=== PATIENT | female | born 1950 | race Caucasian/White ===

== ENCOUNTER → 2022-03-28 | Outpatient (CLI) | payer MEDICARE ==
[~2022-03-28] MED LIST: ALBUTEROL0.63 MG/3 NEB; ASPIRIN81 MG PO; BREO ELLIPTA 11 EACH INH; CENTRUM ADULTS1 EACH PO; CLOPIDOGREL75 MG PO; CRESTOR10 MG PO; FEROSUL325 MG PO; FUROSEMIDE40 MG PO; HYDRALAZINE HCL10 MG PO; IPRAT-ALBUT 0.5-3 ML; IRBESARTAN150 MG PO; ISOSORBIDE MONO30 MG PO; LABETALOL HCL100 MG PO; OMEPRAZOLE40 MG PO; POTASSIUM99 M1 PO; RANEXA500 MG PO; SPIRONOLACTONE25 MG PO; TUDORZA PRESS400 MCG; VERAPAMIL ER240 M1
== END ==
LOC: RAD 11:44
PROVIDERS: ATTEND Internal Medicine Gastroenterology
DX: K59.00 Constipation, unspecified (principal)
CPT/HCPCS: 74018

== ENCOUNTER → 2022-04-03 | Day surgery (SDC) | payer MEDICARE ==
[2022-04-01 10:22] LABS: BASOPHILS % 0.8 % (0.0-1.0); EOSINOPHILS # (AUTO) 0.1 (0.0-0.4); EOSINOPHILS % 1.2 % (0.0-6.0); HEMATOCRIT 30.8 % (34.2-44.1); HEMOGLOBIN 9.9 g/dL (12.0-16.0); LYMPHOCYTES # (AUTO) 1.7 (1.0-3.2); LYMPHOCYTES % 32.5 % (18.0-39.1); MEAN CORPUSCULAR HEMOGLOBIN 32.4 pg (28-32); MEAN CORPUSCULAR HGB CONC 32.1 g/dL (31-35); MEAN CORPUSCULAR VOLUME 100.7 fL (81-99); MONOCYTES # (AUTO) 0.6 (0.2-0.8); MONOCYTES % 10.9 % (4.4-11.3); NEUTROPHILS # (AUTO) 2.7 (2.1-6.9); NEUTROPHILS % 53.2 % (38.7-80.0); PLATELET COUNT 192 x10e3/uL (140-360); RED BLOOD COUNT 3.06 x10e6/uL (3.6-5.1); RED CELL DISTRIBUTION WIDTH 13.6 % (11.7-14.4)
[~2022-04-03] MED LIST changes: +EPHEDRINE SULFATE INJ 50 MG/ML VIAL ONE; +FENTANYL CITRATE/PF 100MCG/2 ML INJ ONE; +HYOSCYAMINE SULFATE 0.5 MG/ML INJ ONE; +LIDOCAINE HCL 2% LOCAL INJ 5 ML SDV VIAL INJ ONE; +MIDAZOLAM HCL 2 MG/2 ML VIAL ONE; +PROPOFOL IV EMULSION 10 MG/ML 20 ML VIAL ONE
[2022-04-03 09:24] VITALS: BP 138/58
== END | disposition home or self-care (01) ==
LOC: OR 06:16
PROVIDERS: ATTEND Internal Medicine Gastroenterology
DX: K21.9 Gastro-esophageal reflux disease without esophagitis (principal); D12.3 Benign neoplasm of transverse colon; K29.60 Other gastritis without bleeding; K29.80 Duodenitis without bleeding; K59.09 Other constipation; K20.90 Esophagitis, unspecified without bleeding; K22.89 Other specified disease of esophagus; K44.9 Diaphragmatic hernia without obstruction or gangrene; K31.89 Other diseases of stomach and duodenum; K56.609 Unspecified intestinal obstruction, unspecified as to partial versus complete obstruction; K57.30 Diverticulosis of large intestine without perforation or abscess without bleeding; K58.9 Irritable bowel syndrome, unspecified; K64.8 Other hemorrhoids; D64.9 Anemia, unspecified; Z71.3 Dietary counseling and surveillance; J44.9 Chronic obstructive pulmonary disease, unspecified; E78.00 Pure hypercholesterolemia, unspecified; I12.9 Hypertensive chronic kidney disease with stage 1 through stage 4 chronic kidney disease, or unspecified chronic kidney disease; N18.9 Chronic kidney disease, unspecified; I83.90 Asymptomatic varicose veins of unspecified lower extremity; F41.9 Anxiety disorder, unspecified; Z88.6 Allergy status to analgesic agent; Z88.1 Allergy status to other antibiotic agents; Z88.0 Allergy status to penicillin; Z88.8 Allergy status to other drugs, medicaments and biological substances; Z01.810 Encounter for preprocedural cardiovascular examination; Z01.812 Encounter for preprocedural laboratory examination; Z20.822 Contact with and (suspected) exposure to COVID-19; Z99.81 Dependence on supplemental oxygen; Z79.02 Long term (current) use of antithrombotics/antiplatelets; Z79.82 Long term (current) use of aspirin; Z79.899 Other long term (current) drug therapy; Z87.891 Personal history of nicotine dependence
CPT/HCPCS: 0223U; 36415; 43239; 45378; 45385; 85025; 93005; J1980; J2001; J2250; J3010

== ENCOUNTER 2022-05-15 08:27 | Inpatient (IN) | payer MEDICARE ==
[~2022-05-15] VITALS: Ht 154.9 cm; Wt 67.1 kg
[~2022-05-15 08:27] MED LIST changes: -EPHEDRINE SULFATE INJ 50 MG/ML VIAL ONE; -FENTANYL CITRATE/PF 100MCG/2 ML INJ ONE; -HYOSCYAMINE SULFATE 0.5 MG/ML INJ ONE; -LIDOCAINE HCL 2% LOCAL INJ 5 ML SDV VIAL INJ ONE; -MIDAZOLAM HCL 2 MG/2 ML VIAL ONE; -PROPOFOL IV EMULSION 10 MG/ML 20 ML VIAL ONE; -VERAPAMIL ER240 M1; +VERAPAMIL ER240 M1 PO
[2022-05-15 09:47] LABS: BASOPHILS # (AUTO) 0.1 (0.0-0.1); BASOPHILS % 0.3 % (0.0-1.0); EOSINOPHILS % 0.3 % (0.0-6.0); HEMATOCRIT 27.4 % (34.2-44.1); HEMOGLOBIN 8.7 g/dL (12.0-16.0); LYMPHOCYTES % 12.8 % (18.0-39.1); MEAN CORPUSCULAR HEMOGLOBIN 31.5 pg (28-32); MEAN CORPUSCULAR HGB CONC 31.8 g/dL (31-35); MEAN CORPUSCULAR VOLUME 99.3 fL (81-99); MONOCYTES # (AUTO) 2.1 (0.2-0.8); MONOCYTES % 13.1 % (4.4-11.3); NEUTROPHILS # (AUTO) 11.5 (2.1-6.9); NEUTROPHILS % 72.7 % (38.7-80.0); PLATELET COUNT 264 x10e3/uL (140-360); RED BLOOD COUNT 2.76 x10e6/uL (3.6-5.1); RED CELL DISTRIBUTION WIDTH 13.7 % (11.7-14.4)
[2022-05-15 10:06] LABS: ALANINE AMINOTRANSFERASE 18 IU/L (0-55); ALBUMIN 3.1 g/dL (3.5-5.0); ALKALINE PHOSPHATASE 74 IU/L (40-150); ANION GAP 17.6 mmol/L (8-16); BLOOD UREA NITROGEN 42 mg/dL (7-26); BUN/CREATININE RATIO 19 (6-25); CALCIUM 9.1 mg/dL (8.4-10.2); CARBON DIOXIDE 21 mmol/L (22-29); CHLORIDE 104 mmol/L (98-107); CREATINE KINASE 135 IU/L (29-168); CREATININE, SERUM 2.27 mg/dL (0.57-1.11); GLUCOSE 102 mg/dL (74-118); MAGNESIUM 1.3 MG/DL (1.3-2.1); POTASSIUM 4.6 mmol/L (3.5-5.1); SODIUM 138 mmol/L (136-145)
[2022-05-15 10:23] LABS: INR 1.1; PARTIAL THROMBOPLASTIN TIME 34.9 seconds (23.8-35.5); PROTHROMBIN TIME 15.2 seconds (11.9-14.5)
[2022-05-15] MEDS ORDERED: POTASSIUM CHLO20 ME1 PO (10:37)
[2022-05-15] MEDS ORDERED: ASPIRIN 81 MG CHEW TAB PO ONE (11:15)
[2022-05-15] MEDS ORDERED: HYDRALAZINE HCL 10 MG TAB PO SCH (11:30)
[2022-05-15] MEDS: ALBUTEROL/IPRATROPIUM 3 ML NEB HHN SCH ×2 (11:50→19:45)
[2022-05-15 12:02] LABS: FREE THYROXINE INDEX 1.8672 (1.4-3.8); THYROID STIMULATING HORMONE 2.71 uIU/mL (0.350-4.940)
[2022-05-15] MEDS: METHYLPREDNISOLONE SOD SUCC 40 MG/ML VIAL 1ML IV SCH ×2 (13:38→22:36)
[2022-05-15 14:17] LABS: CREATINE KINASE 133 IU/L (29-168)
[2022-05-15] MEDS: RANOLAZINE 500 MG TABSR PO SCH (17:00)
[2022-05-15 20:00] VITALS: BP 160/75
[2022-05-15 20:20] VITALS: BP 160/75
[2022-05-15 21:00] VITALS: BP 160/75
[2022-05-15] MEDS ORDERED: BREO ELLIPTA 11 EACH INH (22:45)
[2022-05-15] MEDS ORDERED: OMEPRAZOLE40 MG PO (22:49)
[2022-05-15] MEDS ORDERED: FUROSEMIDE20 MG PO (23:08)
[2022-05-15] MEDS ORDERED: HYDRALAZINE HCL 25 MG TAB PO PRN (23:15)
[2022-05-15 23:33] VITALS: BP 160/75
[2022-05-16] VITALS: BP 180/65
[2022-05-16] MEDS: ALBUTEROL/IPRATROPIUM 3 ML NEB HHN SCH ×4 (01:15→19:00)
[2022-05-16] MEDS: HYDRALAZINE HCL 25 MG TAB PO PRN ×2 (02:03→13:35)
[2022-05-16 04:00] VITALS: BP 192/72
[2022-05-16 05:41] LABS: BASOPHILS % 0.2 % (0.0-1.0); HEMATOCRIT 26.4 % (34.2-44.1); HEMOGLOBIN 8.6 g/dL (12.0-16.0); LYMPHOCYTES # (AUTO) 0.6 (1.0-3.2); LYMPHOCYTES % 7.2 % (18.0-39.1); MEAN CORPUSCULAR HEMOGLOBIN 30.5 pg (28-32); MEAN CORPUSCULAR HGB CONC 32.6 g/dL (31-35); MEAN CORPUSCULAR VOLUME 93.6 fL (81-99); MONOCYTES # (AUTO) 0.4 (0.2-0.8); MONOCYTES % 5.1 % (4.4-11.3); NEUTROPHILS # (AUTO) 7.1 (2.1-6.9); NEUTROPHILS % 85.7 % (38.7-80.0); PLATELET COUNT 260 x10e3/uL (140-360); RED BLOOD COUNT 2.82 x10e6/uL (3.6-5.1); RED CELL DISTRIBUTION WIDTH 13.3 % (11.7-14.4)
[2022-05-16] MEDS: METHYLPREDNISOLONE SOD SUCC 40 MG/ML VIAL 1ML IV SCH ×3 (05:48→22:02)
[2022-05-16 06:07] LABS: ALBUMIN 3.2 g/dL (3.5-5.0); ALBUMIN/GLOBULIN RATIO 0.8 (0.8-2.0); ANION GAP 18.5 mmol/L (8-16); CALCIUM 9.8 mg/dL (8.4-10.2); CHOL/HDL RATIO 3.3 (3.0-3.6); CREATININE, SERUM 1.92 mg/dL (0.57-1.11); POTASSIUM 4.5 mmol/L (3.5-5.1)
[2022-05-16 06:52] LABS: CREATINE KINASE 172 IU/L (29-168)
[2022-05-16 09:00] VITALS: BP 178/56
[2022-05-16] MEDS ORDERED: VERAPAMIL HCL PO SCH (09:00)
[2022-05-16] MEDS: BREO ELLIPTA INH SCH (09:00)
[2022-05-16] MEDS ORDERED: LABETALOL HCL 100 MG TAB PO SCH (09:00)
[2022-05-16] MEDS ORDERED: ASPIRIN 81 MG CHEW TAB PO SCH (09:00)
[2022-05-16] MEDS: MULTIVITAMINS/MINERALS TAB PO SCH (09:54)
[2022-05-16] MEDS: ASPIRIN 81 MG ENTERIC COATED PO SCH (09:55)
[2022-05-16] MEDS: RANOLAZINE 500 MG TABSR PO SCH ×2 (09:57→16:46)
[2022-05-16] MEDS: ISOSORBIDE MONONITRATE 30 MG TAB CR PO SCH (09:58)
[2022-05-16] MEDS: IRBESARTAN 150 MG TAB PO SCH (09:59)
[2022-05-16] MEDS: PANTOPRAZOLE SOD 40 MG TABEC PO SCH (09:59)
[2022-05-16] MEDS: CLOPIDOGREL BISULFATE 75 MG TAB PO SCH (09:59)
[2022-05-16 13:21] VITALS: BP 175/69
[2022-05-16] MEDS: NYSTATIN SUSPENSION 5 ML UDC PO SCH ×2 (13:36→16:46)
[2022-05-16 14:29] LABS: CREATINE KINASE 205 IU/L (29-168)
[2022-05-16 16:15] VITALS: BP 173/50
[2022-05-16] MEDS: HYDRALAZINE HCL 25 MG TAB PO SCH ×2 (18:48→22:07)
[2022-05-16 20:00] VITALS: BP 201/62
[2022-05-16] MEDS: SIMVASTATIN 20 MG TAB PO SCH (22:02)
[2022-05-17] VITALS (7 sets, daily range): BP systolic 141–171; BP diastolic 40–67
[2022-05-17] MEDS: ALBUTEROL/IPRATROPIUM 3 ML NEB HHN SCH ×4 (00:44→18:45)
[2022-05-17] MEDS ORDERED: HYDRALAZINE HCL 20 MG/ML VIAL ONE (01:29)
[2022-05-17 06:09] LABS: BASOPHILS % 0.3 % (0.0-1.0); HEMATOCRIT 25.4 % (34.2-44.1); HEMOGLOBIN 8.3 g/dL (12.0-16.0); LYMPHOCYTES # (AUTO) 0.7 (1.0-3.2); LYMPHOCYTES % 5.6 % (18.0-39.1); MEAN CORPUSCULAR HGB CONC 32.7 g/dL (31-35); MEAN CORPUSCULAR VOLUME 94.8 fL (81-99); MONOCYTES # (AUTO) 0.6 (0.2-0.8); MONOCYTES % 4.5 % (4.4-11.3); NEUTROPHILS # (AUTO) 10.9 (2.1-6.9); PLATELET COUNT 310 x10e3/uL (140-360); RED BLOOD COUNT 2.68 x10e6/uL (3.6-5.1); RED CELL DISTRIBUTION WIDTH 13.4 % (11.7-14.4)
[2022-05-17 06:44] LABS: ANION GAP 18.6 mmol/L (8-16); CALCIUM 9.8 mg/dL (8.4-10.2); CREATININE, SERUM 1.37 mg/dL (0.57-1.11); POTASSIUM 4.6 mmol/L (3.5-5.1)
[2022-05-17] MEDS: METHYLPREDNISOLONE SOD SUCC 40 MG/ML VIAL 1ML IV SCH ×3 (07:02→22:29)
[2022-05-17] MEDS: HYDRALAZINE HCL 25 MG TAB PO SCH ×3 (07:02→22:29)
[2022-05-17] MEDS: NYSTATIN SUSPENSION 5 ML UDC PO SCH ×4 (07:02→17:22)
[2022-05-17] MEDS: BREO ELLIPTA INH SCH (08:35)
[2022-05-17] MEDS: MULTIVITAMINS/MINERALS TAB PO SCH (08:49)
[2022-05-17] MEDS: RANOLAZINE 500 MG TABSR PO SCH ×2 (08:49→17:22)
[2022-05-17] MEDS: AZITHROMYCIN 250 MG TAB PO SCH (08:49)
[2022-05-17] MEDS: CLOPIDOGREL BISULFATE 75 MG TAB PO SCH (08:50)
[2022-05-17] MEDS: IRBESARTAN 150 MG TAB PO SCH (08:50)
[2022-05-17] MEDS: ASPIRIN 81 MG ENTERIC COATED PO SCH (08:50)
[2022-05-17] MEDS: PANTOPRAZOLE SOD 40 MG TABEC PO SCH (08:50)
[2022-05-17] MEDS: ISOSORBIDE MONONITRATE 30 MG TAB CR PO SCH (08:51)
[2022-05-17] MEDS ORDERED: GUAIFENESIN 200 MG/10 ML UDC PO PRN (11:15)
[2022-05-17] MEDS ORDERED: GUAIFENESIN/CODEINE 5 ML LIQD PO PRN (11:15)
[2022-05-17] MEDS: SIMVASTATIN 20 MG TAB PO SCH (22:22)
[2022-05-17] MEDS: HEPARIN SOD (PORCINE) 5,000 UNIT/ML VIAL SC SCH (22:39)
[2022-05-18] VITALS (8 sets, daily range): BP systolic 143–200; BP diastolic 43–69
[2022-05-18] MEDS: ALBUTEROL/IPRATROPIUM 3 ML NEB HHN SCH ×4 (00:35→19:30)
[2022-05-18] MEDS: NYSTATIN SUSPENSION 5 ML UDC PO SCH ×5 (05:31→23:41)
[2022-05-18] MEDS: METHYLPREDNISOLONE SOD SUCC 40 MG/ML VIAL 1ML IV SCH ×3 (05:31→20:58)
[2022-05-18] MEDS: HYDRALAZINE HCL 25 MG TAB PO SCH ×2 (06:44→13:32)
[2022-05-18] MEDS: HYDRALAZINE HCL 20 MG/ML VIAL IV PRN ×2 (08:15→16:07)
[2022-05-18] MEDS: AZITHROMYCIN 250 MG TAB PO SCH (08:18)
[2022-05-18] MEDS: PANTOPRAZOLE SOD 40 MG TABEC PO SCH (08:18)
[2022-05-18] MEDS: MULTIVITAMINS/MINERALS TAB PO SCH (08:19)
[2022-05-18] MEDS: ISOSORBIDE MONONITRATE 30 MG TAB CR PO SCH (08:19)
[2022-05-18] MEDS: CLOPIDOGREL BISULFATE 75 MG TAB PO SCH (08:19)
[2022-05-18] MEDS: RANOLAZINE 500 MG TABSR PO SCH ×2 (08:20→16:16)
[2022-05-18] MEDS: ASPIRIN 81 MG ENTERIC COATED PO SCH (08:20)
[2022-05-18] MEDS: BREO ELLIPTA INH SCH (08:20)
[2022-05-18] MEDS: IRBESARTAN 150 MG TAB PO SCH (08:22)
[2022-05-18] MEDS ORDERED: ACETAMINOPHEN 325 MG TAB ONE (08:58)
[2022-05-18] MEDS: HEPARIN SOD (PORCINE) 5,000 UNIT/ML VIAL SC SCH ×2 (14:39→22:02)
[2022-05-18] MEDS ORDERED: HYDRALAZINE HCL 25 MG TAB PO ONE (16:00)
[2022-05-18] MEDS: SPIRONOLACTONE 25 MG TAB PO SCH (16:16)
[2022-05-18] MEDS: ACETAMINOPHEN 325 MG TAB PO PRN (16:18)
[2022-05-18] MEDS: DOXAZOSIN MESYLATE 2 MG TAB PO SCH (18:46)
[2022-05-18] MEDS: SIMVASTATIN 20 MG TAB PO SCH (20:58)
[2022-05-18] MEDS: HYDRALAZINE HCL 100 MG TABLET PO SCH (20:58)
[2022-05-19] VITALS (8 sets, daily range): BP systolic 138–175; BP diastolic 36–94
[2022-05-19] MEDS: ALBUTEROL/IPRATROPIUM 3 ML NEB HHN SCH ×4 (00:35→18:50)
[2022-05-19] MEDS: METHYLPREDNISOLONE SOD SUCC 40 MG/ML VIAL 1ML IV SCH ×2 (04:37→17:13)
[2022-05-19] MEDS: NYSTATIN SUSPENSION 5 ML UDC PO SCH ×4 (04:38→23:27)
[2022-05-19] MEDS: HYDRALAZINE HCL 100 MG TABLET PO SCH ×3 (04:38→21:53)
[2022-05-19] MEDS: BREO ELLIPTA INH SCH (09:00)
[2022-05-19] MEDS: MULTIVITAMINS/MINERALS TAB PO SCH (09:04)
[2022-05-19] MEDS: RANOLAZINE 500 MG TABSR PO SCH ×2 (09:04→17:13)
[2022-05-19] MEDS: PANTOPRAZOLE SOD 40 MG TABEC PO SCH (09:04)
[2022-05-19] MEDS: CLOPIDOGREL BISULFATE 75 MG TAB PO SCH (09:05)
[2022-05-19] MEDS: SPIRONOLACTONE 25 MG TAB PO SCH (09:06)
[2022-05-19] MEDS: ISOSORBIDE MONONITRATE 30 MG TAB CR PO SCH (09:06)
[2022-05-19] MEDS: AZITHROMYCIN 250 MG TAB PO SCH (09:06)
[2022-05-19] MEDS: ASPIRIN 81 MG ENTERIC COATED PO SCH (09:06)
[2022-05-19] MEDS: IRBESARTAN 150 MG TAB PO SCH (09:07)
[2022-05-19] MEDS: DOXAZOSIN MESYLATE 2 MG TAB PO SCH (09:14)
[2022-05-19] MEDS: HEPARIN SOD (PORCINE) 5,000 UNIT/ML VIAL SC SCH ×2 (09:16→21:45)
[2022-05-19] MEDS: SODIUM BICARBONATE 650 MG TAB PO SCH ×2 (15:52→21:53)
[2022-05-19] MEDS: ACETAMINOPHEN 325 MG TAB PO PRN (18:35)
[2022-05-19] MEDS: ACETYLCYSTEINE 200 MG/ML 4ML VIAL INH SCH (20:31)
[2022-05-19] MEDS: SIMVASTATIN 20 MG TAB PO SCH (21:53)
[2022-05-20] VITALS (7 sets, daily range): BP systolic 131–176; BP diastolic 41–59
[2022-05-20] MEDS: ALBUTEROL/IPRATROPIUM 3 ML NEB HHN SCH ×4 (00:43→19:00)
[2022-05-20] MEDS: NYSTATIN SUSPENSION 5 ML UDC PO SCH ×3 (06:15→17:14)
[2022-05-20] MEDS: HYDRALAZINE HCL 100 MG TABLET PO SCH ×3 (06:15→20:59)
[2022-05-20 06:17] LABS: BASOPHILS # (AUTO) 0.1 (0.0-0.1); BASOPHILS % 0.4 % (0.0-1.0); HEMATOCRIT 23.7 % (34.2-44.1); HEMOGLOBIN 7.6 g/dL (12.0-16.0); LYMPHOCYTES # (AUTO) 1.2 (1.0-3.2); LYMPHOCYTES % 10.5 % (18.0-39.1); MEAN CORPUSCULAR HEMOGLOBIN 30.8 pg (28-32); MEAN CORPUSCULAR HGB CONC 32.1 g/dL (31-35); MONOCYTES # (AUTO) 0.6 (0.2-0.8); MONOCYTES % 5.5 % (4.4-11.3); NEUTROPHILS # (AUTO) 8.6 (2.1-6.9); NEUTROPHILS % 74.8 % (38.7-80.0); PLATELET COUNT 315 x10e3/uL (140-360); RED BLOOD COUNT 2.47 x10e6/uL (3.6-5.1); RED CELL DISTRIBUTION WIDTH 13.6 % (11.7-14.4)
[2022-05-20] MEDS: ACETYLCYSTEINE 200 MG/ML 4ML VIAL INH SCH ×2 (06:41→19:00)
[2022-05-20 06:53] LABS: CALCIUM 9.2 mg/dL (8.4-10.2); CREATININE, SERUM 1.34 mg/dL (0.57-1.11)
[2022-05-20] MEDS: AZITHROMYCIN 250 MG TAB PO SCH (09:16)
[2022-05-20] MEDS: SPIRONOLACTONE 25 MG TAB PO SCH (09:16)
[2022-05-20] MEDS: PANTOPRAZOLE SOD 40 MG TABEC PO SCH (09:17)
[2022-05-20] MEDS: MULTIVITAMINS/MINERALS TAB PO SCH (09:17)
[2022-05-20] MEDS: CLOPIDOGREL BISULFATE 75 MG TAB PO SCH (09:17)
[2022-05-20] MEDS: SODIUM BICARBONATE 650 MG TAB PO SCH ×3 (09:17→20:59)
[2022-05-20] MEDS: IRBESARTAN 150 MG TAB PO SCH (09:17)
[2022-05-20] MEDS: RANOLAZINE 500 MG TABSR PO SCH ×2 (09:18→17:14)
[2022-05-20] MEDS: ISOSORBIDE MONONITRATE 30 MG TAB CR PO SCH (09:19)
[2022-05-20] MEDS: ASPIRIN 81 MG ENTERIC COATED PO SCH (09:19)
[2022-05-20] MEDS: DOXAZOSIN MESYLATE 2 MG TAB PO SCH (09:19)
[2022-05-20] MEDS: HEPARIN SOD (PORCINE) 5,000 UNIT/ML VIAL SC SCH ×2 (09:20→20:59)
[2022-05-20] MEDS: METHYLPREDNISOLONE SOD SUCC 40 MG/ML VIAL 1ML IV SCH ×2 (09:20→17:14)
[2022-05-20] MEDS: BREO ELLIPTA INH SCH (09:24)
[2022-05-20] MEDS: LORATADINE 10 MG TAB PO SCH (16:00)
[2022-05-20] MEDS: SODIUM CHLORIDE/ALOE VERA 14.1GM NASAL GEL SCH (20:15)
[2022-05-20] MEDS: SIMVASTATIN 20 MG TAB PO SCH (20:59)
[2022-05-21] MEDS: NYSTATIN SUSPENSION 5 ML UDC PO SCH ×3 (00:50→13:04)
[2022-05-21] MEDS: ALBUTEROL/IPRATROPIUM 3 ML NEB HHN SCH ×3 (01:00→12:57)
[2022-05-21 04:00] VITALS: BP 162/65
[2022-05-21 05:57] LABS: BASOPHILS # (AUTO) 0.1 (0.0-0.1); BASOPHILS % 0.4 % (0.0-1.0); EOSINOPHILS % 0.1 % (0.0-6.0); HEMATOCRIT 25.4 % (34.2-44.1); HEMOGLOBIN 7.7 g/dL (12.0-16.0); LYMPHOCYTES # (AUTO) 1.3 (1.0-3.2); MEAN CORPUSCULAR HEMOGLOBIN 30.4 pg (28-32); MEAN CORPUSCULAR HGB CONC 30.3 g/dL (31-35); MEAN CORPUSCULAR VOLUME 100.4 fL (81-99); MONOCYTES # (AUTO) 0.6 (0.2-0.8); MONOCYTES % 5.5 % (4.4-11.3); NEUTROPHILS # (AUTO) 8.5 (2.1-6.9); NEUTROPHILS % 73.2 % (38.7-80.0); PLATELET COUNT 332 x10e3/uL (140-360); RED BLOOD COUNT 2.53 x10e6/uL (3.6-5.1); RED CELL DISTRIBUTION WIDTH 13.5 % (11.7-14.4)
[2022-05-21] MEDS: HYDRALAZINE HCL 100 MG TABLET PO SCH ×2 (06:07→13:03)
[2022-05-21 06:22] LABS: ANION GAP 18.3 mmol/L (8-16); CALCIUM 9.1 mg/dL (8.4-10.2); CREATININE, SERUM 1.16 mg/dL (0.57-1.11); POTASSIUM 4.3 mmol/L (3.5-5.1)
[2022-05-21] MEDS: ACETYLCYSTEINE 200 MG/ML 4ML VIAL INH SCH (06:59)
[2022-05-21 08:56] VITALS: BP 165/51
[2022-05-21] MEDS: SPIRONOLACTONE 25 MG TAB PO SCH (08:57)
[2022-05-21] MEDS: ASPIRIN 81 MG ENTERIC COATED PO SCH (08:58)
[2022-05-21] MEDS: IRBESARTAN 150 MG TAB PO SCH (08:59)
[2022-05-21 09:00] VITALS: BP 165/51
[2022-05-21] MEDS: LORATADINE 10 MG TAB PO SCH (09:00)
[2022-05-21] MEDS: DOXAZOSIN MESYLATE 2 MG TAB PO SCH (09:00)
[2022-05-21] MEDS: HEPARIN SOD (PORCINE) 5,000 UNIT/ML VIAL SC SCH (09:00)
[2022-05-21] MEDS: SODIUM CHLORIDE/ALOE VERA 14.1GM NASAL GEL SCH (09:00)
[2022-05-21] MEDS: CLOPIDOGREL BISULFATE 75 MG TAB PO SCH (09:01)
[2022-05-21] MEDS: ISOSORBIDE MONONITRATE 30 MG TAB CR PO SCH (09:01)
[2022-05-21] MEDS: MULTIVITAMINS/MINERALS TAB PO SCH (09:01)
[2022-05-21] MEDS: RANOLAZINE 500 MG TABSR PO SCH (09:02)
[2022-05-21] MEDS: SODIUM BICARBONATE 650 MG TAB PO SCH (09:02)
[2022-05-21] MEDS: PANTOPRAZOLE SOD 40 MG TABEC PO SCH (09:02)
[2022-05-21] MEDS: AZITHROMYCIN 250 MG TAB PO SCH (09:03)
[2022-05-21] MEDS: METHYLPREDNISOLONE SOD SUCC 40 MG/ML VIAL 1ML IV SCH (09:04)
[2022-05-21] MEDS: BREO ELLIPTA INH SCH (09:05)
[2022-05-21] MEDS ORDERED: NYSTATIN100000 UNI PO (10:20)
[2022-05-21] MEDS ORDERED: AYR SALINE NA14.1 GM (10:20)
[2022-05-21] MEDS ORDERED: SODIUM BICARBO650 MG PO (10:20)
[2022-05-21] MEDS ORDERED: LORATADINE10 MG PO (10:20)
[2022-05-21] MEDS ORDERED: PREDNISONE5 MG PO (10:20)
[2022-05-21] MEDS ORDERED: GUAIFENESI100 MG/5 M PO (10:20)
[2022-05-21] MEDS ORDERED: Acetylcysteine INH (10:20)
[2022-05-21] MEDS ORDERED: CARDURA2 MG PO (10:20)
[2022-05-21] MEDS ORDERED: ALDACTONE25 MG PO (10:20)
[2022-05-21] MEDS ORDERED: DOXYCYCLINE HY100 MG PO (10:20)
[2022-05-21] MEDS ORDERED: RANEXA500 MG PO (10:20)
[2022-05-21] MEDS ORDERED: HYDRALAZINE HC100 MG PO (10:20)
[2022-05-21] MEDS ORDERED: FLUCONAZOLE 100 MG TAB PO ONE (10:30)
[2022-05-21 12:30] VITALS: BP 163/47
[2022-05-21] MEDS ORDERED: MAGNESIUM SULFATE 2GM/50ML 50 ML IV ONE (12:30)
[2022-05-21] MEDS ORDERED: METOPROLOL SUCCINATE 25 MG TAB XL PO SCH (13:00)
[2022-05-21] MEDS: ACETAMINOPHEN 325 MG TAB PO PRN (13:04)
== END 2022-05-21 15:20 | disposition left against medical advice (07) | DRG 190 ==
LOC: ER 08:34 → ERHOLD 11:49 → MED/SURG2 17:38
PROVIDERS: ADMIT Internal Medicine; ATTEND Internal Medicine
DX: J44.1 Chronic obstructive pulmonary disease with (acute) exacerbation (principal); J96.21 Acute and chronic respiratory failure with hypoxia; N17.9 Acute kidney failure, unspecified; I13.0 Hypertensive heart and chronic kidney disease with heart failure and stage 1 through stage 4 chronic kidney disease, or unspecified chronic kidney disease; I50.32 Chronic diastolic (congestive) heart failure; R07.9 Chest pain, unspecified; R00.1 Bradycardia, unspecified; N18.31 Chronic kidney disease, stage 3a; I73.9 Peripheral vascular disease, unspecified; B37.3 Candidiasis of vulva and vagina; J01.90 Acute sinusitis, unspecified; E78.5 Hyperlipidemia, unspecified; Z88.0 Allergy status to penicillin; Z88.8 Allergy status to other drugs, medicaments and biological substances; Z20.822 Contact with and (suspected) exposure to COVID-19; Z99.81 Dependence on supplemental oxygen; Z82.49 Family history of ischemic heart disease and other diseases of the circulatory system; Z87.891 Personal history of nicotine dependence
CPT/HCPCS: 36415; 71045; 71250; 80048; 80053; 80061; 82550; 82553; 82607; 82746; 82948; 83735; 83880; 84436; 84443; 84479; 84484; 85025; 85610; 85730; 87040; 87070; 87205; 93005; 93306; 94640; 94668; 94799; 99251; 99284; J0360; J0456; J1644; J2920; J7050